=== PATIENT | female | born 1965 | race Caucasian/White ===

== ENCOUNTER → 2020-04-01 10:31 | Outpatient (CLI) | payer OTHER, MEDICARE, SELFPAY ==
--- NOTE | ~2020-04-01 | MM_ITS ---
EXAMINATION: MM screening tung BI w sherry HISTORY: Screening mammogram TECHNIQUE: Craniocaudal and mediolateral oblique 3-D tomosynthesis images were obtained and synthetic 2-D images were generated. CAD analysis was submitted and interpreted. COMPARISON: 02/14/2019, 02/04/2018, 02/02/2017 bilateral digital screening mammogram examinations BREAST PARENCHYMAL COMPOSITION: There are scattered areas of fibroglandular density. FINDINGS: Stable mild fibroglandular asymmetry. There is no evidence of suspicious mass, calcificatio n, or architectural distortion to suggest malignancy in either breast. There has been no suspicious i nterval change. IMPRESSION: 1. No mammographic evidence of malignancy. 2. Recommend routine screening mammography in one year. BI-RADS Category 1: Negative Reviewed, dictated and finalized at location A.
== END ==
PROVIDERS: PCP Family Medicine Adolescent Medicine; Visit Provider Obstetrics & Gynecology Gynecology
DX: Z12.31 Encounter for screening mammogram for malignant neoplasm of breast (principal)
CPT/HCPCS: 77063; 77067

== ENCOUNTER 2020-05-08 06:42 | Outpatient (NON) | payer OTHER, MEDICARE, SELFPAY ==
[2020-05-10 21:25] LABS: SARS-CoV-2 RNA PCR Negative
== END 2020-05-08 06:43 ==
PROVIDERS: PCP Family Medicine Adolescent Medicine; Visit Provider Family Medicine Adolescent Medicine
DX: R05 Cough (principal); R50.9 Fever, unspecified
CPT/HCPCS: 87635; C9803; U0003

== ENCOUNTER 2020-05-11 08:10 | Emergency (ER) | payer OTHER, MEDICARE, SELFPAY ==
--- NOTE | ~2020-05-11 | XR_ITS ---
XR chest 2V DATE: 05/11/2020 08:30 INDICATION: Cough, fever TECHNIQUE: PA and lateral views COMPARISON: 01/15/2017 PA and lateral chest FINDINGS: Normal heart size. No hilar or mediastinal enlargement. No pulmonary infiltrate or consolid ation, pleural effusion or pulmonary vascular congestion or pneumothorax. Surgical clips, right upper quadrant, consistent with cholecystectomy. IMPRESSION: No active cardiopulmonary disease Reviewed, dictated and finalized at location A. GER EXCHANGE
[2020-05-11 08:20] VITALS: BP 139/65; PULSE 82; RESP 18; TEMP 36.7; O2SAT 98
--- NOTE | 2020-05-11 08:29 | ED.URI ---
HPI - URI/Sore Throat General Chief Complaint: Upper Respiratory Infection Stated Complaint: sinus infection Source: patient Mode of arrival: ambulatory Limitations: no limitations History of Present Illness HPI Narrative: Patient is a 55-year-old female who presents complaining of cough and sinus drainage. She reports multiple symptoms over the past 11 days. She reports fever, sore throat and body aches initially. She currently reports cough and fatigue for the past 7 days. She reports a history of bronchitis as well as sinusitis. She denies shortness of breath. She has had Covid testing x2, both which were negative. She denies all other complaints. MD elicited complaint: cough Related Data Home Medications Medication Instructions Recorded Confirmed cholecalciferol (vitamin D3) 2,000 unit PO DAILY 06/29/19 05/11/20 [Vitamin D3] potassium chloride 20 meq PO WEEKLY 06/29/19 05/11/20 triamterene-hydrochlorothiazid 1 tablet PO DAILY 06/29/19 05/11/20 vitamin B complex [B 1 tablet PO DAILY 06/29/19 05/11/20 Complex-Vitamin B12] Allergies Allergy/AdvReac Type Severity Reaction Status Date / Time azithromycin Allergy Intermediate Hives Verified 05/11/20 08:27 erythromycin base Allergy Intermediate Hives Verified 05/11/20 08:22 levofloxacin Allergy Intermediate Hives Verified 05/11/20 08:22 Penicillins Allergy Intermediate Hives Verified 05/11/20 08:22 Review of Systems Review of Systems: Narrative: CONSTITUTIONAL: Denies fever, chills, or sweats. Reports fatigue. EYES: Denies visual changes, redness, or discharge. ENT: Denies rhinorrhea, congestion, sore throat, or otalgia. CARDIOVASCULAR: Denies chest pain, palpitations, or edema. RESPIRATORY: Reports cough,denies sob GASTROINTESTINAL: Denies abdominal pain, nausea, vomiting, or diarrhea. GENITOURINARY: Denies dysuria or hematuria. SKIN: Denies rash or itching. MUSCULOSKELETAL: Denies back pain, joint pain, or myalgia. NEUROLOGIC: Denies headache, numbness, dizziness, or weakness. PSYCHIATRIC: Denies anxiety or depression. [facility] Past Medical History Medical History Endometriosis IBS (irritable bowel syndrome) Meniere's syndrome Obesity Surgical History Surgical History History of endometrial ablation History of partial gastrectomy Hx of cholecystectomy Hx of colonoscopy Hx of repair of left rotator cuff Hx of tonsillectomy Hx of tubal ligation Family History Family History Sibling Diabetes mellitus Family history of chronic obstructive pulmonary disease Mother Hypertension Father Cerebrovascular accident Family history of dementia Social History Social History Smoking status: Former smoker Smoking end date: 06/14/94 Alcohol intake: never Exam Narrative: Exam Narrative: GENERAL: Well-appearing, well-nourished, and in no acute distress. HEAD: Normocephalic, atraumatic. EYES: No redness or drainage. ENT: Mucous membranes pink and moist. NECK: AROM. Supple. No lymphadenopathy. CHEST: No respiratory distress. Clear to auscultation. HEART: Regular rate and rhythm. EXTREMITIES: Normal range of motion. SKIN: Warm, dry, no rash. NEURO: No focal deficits. Alert and oriented x3. Gait steady. PSYCH: Normal affect. No signs of depression or anxiety. Course Vital Signs Vital signs: Vital Signs Temperature 36.7 C 05/11/20 08:20 Pulse Rate 82 05/11/20 08:20 Respiratory Rate 18 05/11/20 08:20 Blood Pressure 139/65 05/11/20 08:20 Pulse Oximetry 98 05/11/20 08:20 Temperature 36.7 C 05/11/20 08:20 Pulse Rate 82 05/11/20 08:20 Respiratory Rate 18 05/11/20 08:20 Blood Pressure 139/65 05/11/20 08:20 Pulse Oximetry 98 05/11/20 08:20 Reviewed. Patient has been instructed to follow-up with her PCP regarding her blood pressure.
== END 2020-05-11 09:03 | disposition home or self-care (01) ==
PROVIDERS: Emergency Provider Nurse Practitioner; PCP Family Medicine Adolescent Medicine
DX: J40 Bronchitis, not specified as acute or chronic (principal); J32.9 Chronic sinusitis, unspecified; Z87.891 Personal history of nicotine dependence; N80.9 Endometriosis, unspecified; H81.09 Meniere's disease, unspecified ear; E66.9 Obesity, unspecified; Z68.34 Body mass index [BMI] 34.0-34.9, adult
CPT/HCPCS: 71046; 99213; G0463

== ENCOUNTER → 2021-04-04 07:26 | Outpatient (CLI) | payer OTHER, MEDICARE, SELFPAY ==
--- NOTE | ~2021-04-04 | MMUS_ITS ---
EXAMINATION: MM diagnostic mammo unilat LT, US breast LT complete HISTORY: Left breast pain TECHNIQUE: Additional ML 3-D tomosynthesis images of the left breast were performed and synthetic 2-D images were generated. CAD analysis was submitted and interpreted. High resolution complete left kraig ast ultrasound including all 4 quadrants and subareolar area was performed. COMPARISON: 04/04/2021, 04/01/2020, 02/14/2019, 01/31/2018 bilateral digital screening mammogram examina tions BREAST PARENCHYMAL COMPOSITION: There are scattered areas of fibroglandular density. FINDINGS: MAMMOGRAPHIC FINDINGS: No suspicious mass or architectural distortion, malignant calcification, skin thickening or retractio n or significant new or developing density of the left breast is evident since prior examinations. ULTRASOUND: No solid mass lesion or suspicious shadowing of the left breast is evident. No cyst is identified. IMPRESSION: 1. No mammographic evidence of malignancy 2. Routine mammographic screening is recommended. BI-RADS Category 1: Negative Reviewed, dictated and finalized at location A. IMPRESSION: 1. No mammographic evidence of malignancy 2. Routine mammographic screening is recommended. BI-RADS Category 1: Negative
--- NOTE | ~2021-04-04 | MM_ITS ---
EXAMINATION: MM screening tung BI w sherry HISTORY: Screening mammogram TECHNIQUE: Craniocaudal and mediolateral oblique 3-D tomosynthesis images were obtained and synthetic 2-D images were generated. CAD analysis was submitted and interpreted. COMPARISON: 04/01/2020, 02/14/2019 bilateral digital screening mammogram examinations BREAST PARENCHYMAL COMPOSITION: There are scattered areas of fibroglandular density. FINDINGS: There is stable fibroglandular asymmetry. There is no evidence of suspicious mass, calcific ation, or architectural distortion to suggest malignancy in either breast. There has been no suspicio us interval change. IMPRESSION: 1. No mammographic evidence of malignancy. 2. Recommend routine screening mammography in one year. BI-RADS Category 1: Negative Reviewed, dictated and finalized at location A.
== END ==
PROVIDERS: PCP Family Medicine Adolescent Medicine; Visit Provider Nurse Practitioner
DX: Z12.31 Encounter for screening mammogram for malignant neoplasm of breast (principal); N64.4 Mastodynia
CPT/HCPCS: 76641; 77063; 77065; 77067

== ENCOUNTER 2021-06-05 11:30 | Outpatient (RCR) | payer OTHER, MEDICARE, SELFPAY ==
--- NOTE | 2021-05-22 16:11 | PTOPEVAL ---
PHYSICAL THERAPY EVALUATION AND PLAN OF CARE 05-22-21 Thank you for referring Kisha Romero to [facility].? She is scheduled to be seen for therapy? 3 x/week for 3 weeks. Please review, sign, date and return this plan of care ANAMARIA. I agree with and certify that the following plan of care is medically necessary. Referring Physician Date Attending Provider: Jyoti Nunez, JASE PT Outpatient Evaluation Document 05/22/21 15:10 ELIZ (Rec: 05/22/21 16:11 ELIZ [id number]) Past Medical History Cardiovascular History Hx Cardiac Disorders No Significant History Respiratory History Hx Bronchitis Yes Gastrointestinal History Hx Cholecystectomy Yes Hx Gastroesophageal Reflux Disease Yes Hx Irritable Bowel Yes: hx Hx Polyps Yes Genitourinary History Hx Genitourinary Disorders No Significant History Musculoskeletal History Hx Fibromyalgia Yes Hx Orthopedic Surgery Yes: B carpal tunnel release surgery Hx Other Musculoskeletal Disorders Yes: L lower leg injury with softball sliding into base- sprain, no fractures Hematological History Hx Hematological Disorders No Significant History Endocrine History Hx Diabetes Yes: new diagnosis of pre diabetic HEENT History Hx Meniere's Syndrome Yes Integumentary History Hx Skin Disorders No Significant History Reproductive History Hx Post Menopausal Yes: had uterine ablation Psychosocial History Hx Psychiatric Disorders No Significant History Pain History History of Any Previous or Ongoing No Significant History Instance of Pain Anesthesia History Hx Anesthesia Reactions No Significant History Evaluation Information Problem Diagnosis L LE lymphedema Onset Mar 2021 Prior Level of Function Activity Level (Last 3 Months) Occupation not working outside of home Activity of Daily Living Ability Independent Indoor/Home Mobility Independent Community Mobility Independent Stairs Ability Independent Functional Cognition (Planning, Shopping Independent , Taking Medications) Cooking Yes Cleaning Yes Laundry Yes Shopping Yes Driving Yes Home Setting Home Type House Mobility Assistive Devices (Used Last 3 None Months) Comments Additional Prior Level of Function doing all home and self care Comments tasks, more pain and limited
--- NOTE | 2021-06-12 08:12 | PCPTNOTE ---
pt called and canceled due to her mom falling and caring for her;
--- NOTE | 2021-07-04 09:58 | PCPTNOTE ---
PHYSICAL THERAPY DISCHARGE 07-04-21 Attending Provider: Jyoti Nunez PA-C Patient:Kisha Romero Date of :1965 Ms. Romero has not returned for any further treatments since 06/05/2021, therefore she will be discharged at this time. She received 7 PT sessions from May 22 to for the diagnosis of L LE lymphedema. She then called and canceled the reevaluation on due to her mom falling and having to care for her. She did not return for any further treatment after that. The goals were not addressed. Thank you for referring this patient to [facility]. Please review, sign, date and return this discharge summary ANAMARIA. I have been updated about the patient's current status and I agree with discharge from the above service at this time. Referring Physician Date
== END 2021-07-07 08:58 | disposition home or self-care (01) ==
LOC: ANHPT 11:30
PROVIDERS: PCP Family Medicine Adolescent Medicine; Visit Provider Physician Assistant
DX: I89.0 Lymphedema, not elsewhere classified (principal)
CPT/HCPCS: 29581; 97016; 97140; 97161

== ENCOUNTER 2021-10-29 01:04 | Day surgery (SDC) | payer OTHER, MEDICARE, SELFPAY ==
[2021-10-24 13:15] VITALS: BMI 34.0
[2021-10-29] VITALS (8 sets, daily range): BP systolic 115–149; BP diastolic 72–88; PULSE 42–70; RESP 17–18; TEMP 36.2–36.3; O2SAT 99–100; BMI 34.4
--- NOTE | ~2021-10-29 | XR_ITS ---
EXAMINATION: XR ERCP DATE: 10/29/2021 12:10 CDT INDICATION: STONES,ERCP, SPHINCTEROTOMY . TECHNIQUE: 12 fluoroscopic images of the right upper quadrant were obtained during ERCP. I was not pr esent during the procedure. Fluoroscopy exposure time was 97.3 seconds. Cumulative dose 20.24 mGy. COMPARISON: None. FINDINGS: Endoscopic catheterization of the common duct. The common duct and pancreatic duct are normal. There is no definite filling defect. IMPRESSION: Fluoroscopic documentation of ERCP. Reviewed, dictated and finalized at location K.
[2021-10-29] MEDS: LACTATED RINGERS 1,000 ML 150 ML IV CONT (11:18)
--- NOTE | 2021-10-29 11:46 | WPDANESEPPF ---
Anes - Initial Pre Proc Eval Procedure: Operation Date: 10/29/21 13:15 Proposed Procedures p Endoscopic Retro Cholangiopancreatogram - Shay Merino MD Date/Time: 10/29/21 11:46 Surgeon: Shay Merino MD Pre Op Diagnosis: sphincter of oddi dysfunction Patient Data Age: 56 Gender: F Height: 1.57 m Weight: 85.6 kg Last Vital Signs Temp 97.3 F L 10/29/21 10:40 Pulse 57 L 10/29/21 10:40 Resp 18 10/29/21 10:40 BP 140/72 10/29/21 10:40 Pulse Ox 100 10/29/21 10:40 Allergies Allergy/AdvReac Type Severity Reaction Status Date / Time erythromycin base Allergy Intermediate Hives Verified 10/29/21 10:54 levofloxacin Allergy Intermediate Hives Verified 10/29/21 10:54 Penicillins Allergy Intermediate Hives Verified 10/29/21 10:54 Home Medications Medication Instructions Recorded Confirmed Type cholecalciferol (vitamin D3) 2,000 unit PO DAILY 06/29/19 10/29/21 History [Vitamin D3] triamterene-hydrochlorothiazid 1 tablet PO DAILY 06/29/19 10/29/21 History potassium chloride 20 mEq 40 meq PO WEEKLY tablet 09/04/21 10/29/21 History tablet,extended release(part/cryst) sertraline 50 mg tablet 50 mg PO DAILY #30 tablet 09/26/21 10/29/21 Rx Patient hx anesthesia problems: post op nausea/vomiting (will apply scopolamine patch) Family hx anesthesia problems: none Results Review: All pre-operative results and documents have been reviewed as part of the pre-operative evaluation. [facility] Past Medical History Medical History (Updated 10/16/21 @ 11:53 by Shay Merino MD) Adenomatous colon polyp Endometriosis Hx of adenomatous colonic polyps IBS (irritable bowel syndrome) Meniere's syndrome Obesity RUQ pain Sphincter of Oddi dysfunction Surgical History Surgical History (Updated 10/16/21 @ 11:53 by Shay Merino MD) H/O gastric sleeve History of carpal tunnel surgery Bilateral History of endometrial ablation History of partial gastrectomy Hx of cholecystectomy Hx of colonoscopy Hx of repair of left rotator cuff Hx of tonsillectomy Hx of tubal ligation Family History Family History Sibling Diabetes mellitus Family history of chronic obstructive pulmonary disease Mother Hypertension Father Cerebrovascular accident Family history of dementia Hypertension Son Asthma Other Colon polyp Social History Social History Smoking status: Never smoker Second hand tobacco smoke exposure: No Alcohol intake: never Substance use: never Substance use type: does not use Living arrangements: with family Additional occupation/education comments: Disability Gender identity (if verbalized by the patient): Female Sexual Orientation (if Verbalized by the Patient): Straight or Heterosexual Spiritual care concerns: No Agree to blood products: Yes Anes - Eval Final PreProcedure Day of Procedure 10/29/21 11:46 Patient weight: obese Heart: regular rate and rhythm Lungs: clear to auscultation Airway: Mallampati scale class II Neurological: alert and oriented Last oral intake: >/= 8 hours ASA classification: III Emergent: no Anesthetic plan: proceed Anesthesia type and monitoring: general ETT and standard monitoring Results Review: All pre-operative results and documents have been reviewed as part of the pre-operative evaluation. Informed Consent: The patient's anesthetic plan and its attendant risks and benefits were discussed with the patient/family/POA. Questions were solicited and answers provided to the satisfaction of the patient/family/POA.
[2021-10-29] MEDS: INDOMETHACIN 50 MG SUPP.RECT RECTAL (12:18)
--- NOTE | 2021-10-29 12:34 | WPDHPUPDATE1 ---
History and Physical Update Update Date/Time: 10/29/21 12:34 History and Physical has been reviewed, including an updated exam of the patient. There are NO changes in the patient's condition. Risks, benefits, and alternatives have been discussed and questions answered. Patient agrees to proceed with procedure.
--- NOTE | 2021-10-29 13:35 | SUR.PHASEII ---
RN notified Dr. Vázquez's of patient's heart rate in the lower 40's. Dr. Carmichael stated the patient was safe for discharge.
== END 2021-10-29 13:45 | disposition home or self-care (01) ==
PROVIDERS: PCP Family Medicine Adolescent Medicine; Visit Provider Internal Medicine Gastroenterology
PROC: (CPT 43260; principal; 2021-10-29 13:15)
DX: R10.11 Right upper quadrant pain (principal); K83.8 Other specified diseases of biliary tract; K83.4 Spasm of sphincter of Oddi; K58.9 Irritable bowel syndrome, unspecified; E66.9 Obesity, unspecified; Z68.34 Body mass index [BMI] 34.0-34.9, adult; Z98.84 Bariatric surgery status
CPT/HCPCS: 43262; 43264; 74329; A9270; J0330; J1100; J2001; J2405; J2704; J7120

== ENCOUNTER 2021-10-31 12:01 | Emergency (ER) | payer OTHER, MEDICARE, SELFPAY ==
--- NOTE | ~2021-10-31 | CT_ITS ---
EXAMINATION: CT abdomen pelvis w con DATE: 10/31/2021 17:52 INDICATION: Epigastric abdominal pain. TECHNIQUE: Computed tomography (CT) of the abdomen and pelvis was performed with 75 mL Omnipaque 300 intravenous contrast. Automated exposure control and iterative reconstruction technique were employed . The dose-length product was 658.00 mGy-cm. COMPARISON: None. FINDINGS: The visualized portions of the lung bases demonstrate minimal atelectasis. No pleural effus ion. The heart size is normal. No pericardial effusion. Pneumobilia is noted, likely secondary to sph incterotomy. There are changes of cholecystectomy. The spleen, pancreas, adrenal glands, and kidneys are normal. There are no dilated loops of bowel. There are surgical changes of the stomach. The appen pauline is normal. There are no pathologically enlarged lymph nodes. There is no free intraperitoneal flu id. There is severe lower lumbar spondylosis. IMPRESSION: 1. No etiology for the patient's symptoms. Reviewed, dictated and finalized at location A.
[2021-10-31 12:05] VITALS: BP 148/66; PULSE 60; RESP 16; TEMP 36.5; O2SAT 100
[2021-10-31 12:13] LABS: Basophils Absolute Auto 0.1 K/mm3 (0.0-0.1); Basophils Percent Auto 0.7 % (0.2-1.2); Eosinophils Absolute Auto 0.1 K/mm3 (0-0.3); Eosinophils Percent Auto 0.7 % (0-4.4); Hematocrit 38.4 % (37.0-47.0); Hemoglobin 12.5 g/dL (12.0-15.0); Immature Granulocyte Absolute 0.04 K/mm3 (0.00-0.031); Immature Granulocyte Percent A 0.5 % (0-0.5); Lymphocytes Absolute Auto 2.31 K/mm3 (0.9-3.2); Lymphocytes Percent Auto 31.3 % (18.3-44.2); Mean Corpuscular HGB Conc 32.6 g/dl (32-36); Mean Corpuscular Hemoglobin 27.5 pg (26-34); Mean Corpuscular Volume 84.6 fl (80-100); Mean Platelet Volume 10.3 fl (7.4-10.4); Monocytes Absolute Auto 0.7 K/mm3 (0.1-0.6); Monocytes Percent Auto 9.9 % (2.6-8.5); Neutrophils Absolute Auto 4.2 K/mm3 (1.3-6.7); Neutrophils Percent Auto 56.9 % (45.5-73.1); Platelet Count Result 369 k/mm3 (150-375); Red Blood Count 4.54 M/mm3 (4.2-5.4); Red Cell Distribution Width 14.5 % (11.5-14.5); White Blood Count 7.4 K/mm3 (4.5-10.0)
[2021-10-31 12:24] LABS: Alanine Aminotransferase 20 U/L (6-35); Albumin Level 4.1 g/dL (3.5-5.1); Alkaline Phosphatase 67 U/L (38-126); Anion Gap 8 mmol/L (8-16); Aspartate Amino Transferase 26 U/L (14-36); Bilirubin,Total 0.2 mg/dL (0.2-1.3); Blood Urea Nitrogen 23 mg/dL (7-17); Calcium 8.5 mg/dL (8.4-10.2); Carbon Dioxide 27 mmol/L (22-30); Chloride 104 mmol/L (98-107); Estimated CRCL calculation 51 ml/min; Estimated Glomerular Filt Rate 51; Glucose 86 mg/dL (65-110); Lipase 119 U/L (23-300); Potassium 3.8 mmol/L (3.4-5.0); Sodium 139 mmol/L (137-145)
[2021-10-31 12:47] LABS: Add Urine Microscopic? NO; Appearance Urine Clear (Clear); Bilirubin Urine Negative (Negative); Blood Urine Negative (Negative); Color Urine Yellow (Yellow); Glucose Urine UA Negative (Negative); Ketones Urine Negative (Negative); Leukocyte Esterase Ur Negative LEU/UL (Negative); Nitrate Urine Negative (Negative); Protein Urine Negative (Negative); Urobilinogen Urine 0.2 mg/dL (<2.0); pH Urine 6.5 (5.0-9.0)
[2021-10-31 14:55] VITALS: BP 135/56; PULSE 55; RESP 18; O2SAT 98
[2021-10-31] MEDS: DICYCLOMINE HCL INJ 20 MG/2 ML VIAL IM (15:42)
--- NOTE | 2021-10-31 16:06 | ED.ABDPAIN ---
HPI - Abdominal Pain General Chief Complaint: Abdominal Pain Stated Complaint: Abd pain Time Seen by Provider: 10/31/21 14:44 Source: patient and RN notes reviewed Mode of arrival: ambulatory Limitations: no limitations History of Present Illness HPI narrative: This is a 56 year old female with history of Sphincter of Oddi syndrome who presents for evaluation of epigastric abdominal pain. Patient had an ERCP performed [address] Merino. She developed epigastric pain yesterday. She reports having constant dull ache that becauses severe sharp with eating and drinking. She has nausea but denies vomiting or fever. She is concerned she may have pancreatitis. This pain is similar to previous episode of pancreatitis and sphincter of oddi dysfunction. She took tylenol without relief. She rates her pain as 5/10. Related Data Home Medications Medication Instructions Recorded Confirmed cholecalciferol (vitamin D3) 2,000 unit PO DAILY 06/29/19 10/29/21 [Vitamin D3] triamterene-hydrochlorothiazid 1 tablet PO DAILY 06/29/19 10/29/21 potassium chloride 20 mEq 40 meq PO WEEKLY tablet 09/04/21 10/29/21 tablet,extended release(part/cryst) Allergies Allergy/AdvReac Type Severity Reaction Status Date / Time erythromycin base Allergy Intermediate Hives Verified 10/31/21 14:56 levofloxacin Allergy Intermediate Hives Verified 10/31/21 14:56 Penicillins Allergy Intermediate Hives Verified 10/31/21 14:56 Review of Systems Review of Systems: All systems reviewed & are unremarkable except as noted in HPI and below Constitutional: Constitutional: Denies chills and Denies fever(s) Cardiovascular: Cardiovascular: Denies chest pain Respiratory: Respiratory: Denies cough and Denies dyspnea Gastrointestinal: Gastrointestinal: Reports abdominal pain, Denies diarrhea, Reports nausea and Denies vomiting Musculoskeletal: Musculoskeletal: Reports back pain PMFSH Past Medical History Medical History Adenomatous colon polyp Endometriosis Hx of adenomatous colonic polyps IBS (irritable bowel syndrome) Meniere's syndrome Obesity RUQ pain Sphincter of Oddi dysfunction Surgical History Surgical History H/O gastric sleeve History of carpal tunnel surgery Bilateral History of endometrial ablation History of partial gastrectomy Hx of cholecystectomy Hx of colonoscopy Hx of repair of left rotator cuff Hx of tonsillectomy Hx of tubal ligation Family History Family History Sibling Diabetes mellitus Family history of chronic obstructive pulmonary disease Mother Hypertension Father Cerebrovascular accident Family history of dementia Hypertension Son Asthma Other Colon polyp Social History Social History Smoking status: Never smoker Second hand tobacco smoke exposure: No Alcohol intake: never Substance use: never Substance use type: does not use Additional occupation/education comments: Disability Gender identity (if verbalized by the patient): Female Sexual Orientation (if Verbalized by the Patient): Straight or Heterosexual Spiritual care concerns: No Agree to blood products: Yes Exam Narrative: GENERAL: Well-appearing, well-nourished, and in no acute distress. HEAD: Normocephalic, atraumatic EYES: EOMI, conjunctiva clear without discharge THROAT:Mucous membranes moist, Oropharynx normal without erythema, exudate, peritonsillar swelling or fluctuance NECK: Supple, without lymphadenopathy or mass RESPIRATORY: No respiratory distress, Airway patent, Respirations non-labored, Clear to auscultation without rales, rhonchi or wheeze HEART: Regular rate and rhythm. No murmur heard. Normal peripheral pulses. ABDOMEN: Soft, TTP epigasstric , no
[2021-10-31] MEDS: ONDANSETRON HCL ODT 4 MG TABLET PO (16:52)
[2021-10-31] MEDS: BELLADONNA ALK/PHENOB ELIX 10 ML, MAG HYDROX/ALUMINUM HYD/SIMETH 30 ML, LIDOCAINE HCL 2... PO (16:52)
[2021-10-31] MEDS: PANTOPRAZOLE SODIUM IV 40 MG VIAL IV PUSH (17:40)
== END 2021-10-31 18:57 | disposition home or self-care (01) ==
PROVIDERS: Emergency Medicine; Emergency Provider General Practice; PCP Family Medicine Adolescent Medicine
DX: K83.09 Other cholangitis (principal); K58.9 Irritable bowel syndrome, unspecified; H81.09 Meniere's disease, unspecified ear; E66.9 Obesity, unspecified; Z68.34 Body mass index [BMI] 34.0-34.9, adult; Z86.010 Personal history of colon polyps
CPT/HCPCS: 36415; 74177; 80053; 81003; 81025; 83690; 85025; 96365; 96372; 96375; 99284; A9270; C9113; J0131; J0500; Q9967

== ENCOUNTER 2022-05-12 17:18 | Outpatient (CLI) | payer OTHER, MEDICARE, SELFPAY ==
--- NOTE | ~2022-05-12 | MM_ITS ---
EXAMINATION: MM screening tung BI w sherry HISTORY: Screening mammogram TECHNIQUE: Craniocaudal and mediolateral oblique 3-D tomosynthesis images were obtained and synthetic 2-D images were generated. CAD analysis was submitted and interpreted. COMPARISON: 04/04/2021 diagnostic left mammogram and left breast ultrasound examination 04/04/2021, 04/01/2020 bilateral screening mammogram examinations BREAST PARENCHYMAL COMPOSITION: There are scattered areas of fibroglandular density. FINDINGS: There is no evidence of suspicious mass, calcification, or architectural distortion to sugg est malignancy in either breast. There has been no suspicious interval change. IMPRESSION: 1. No mammographic evidence of malignancy. 2. Recommend routine screening mammography in one year. BI-RADS Category 1: Negative Reviewed, dictated and finalized at location B. E GRINDER
== END 2022-05-12 17:19 | disposition home or self-care (01) ==
LOC: ANHIMG 17:20
PROVIDERS: PCP Family Medicine Adolescent Medicine; Visit Provider Nurse Practitioner
DX: Z12.31 Encounter for screening mammogram for malignant neoplasm of breast (principal)
CPT/HCPCS: 77063; 77067

== ENCOUNTER → 2022-05-14 08:50 | Outpatient (CLI) | payer OTHER, SELFPAY ==
--- NOTE | ~2022-05-14 | DEXA_ITS ---
Corrected Repore See bolded Text 05/28/2022 SLJ This report was recreated on 05/28/2022. Original report was signed by Brandon White MD 05/14/2022 9:03 AM. Bone Density Report Name: BAKARI DUTTON Age: 57 Sex: Female Ethnicity: White Date of : 1965 Indication: screening for osteoporosis; postmenopausal Referring Provider: Frank, Kerrie Study: Bone densitometry was performed. Exam Date: May 14, 2022 Accession number: [id number] Bone Density: Region BMD T-score Z-score Classification AP Spine (L1-L4) 1.070 0.2 1.5 Normal Femoral Neck (Left) 0.828 -0.2 1.0 Normal Total Hip (Left) 1.040 0.8 1.6 Normal Femoral Neck (Right) 0.884 0.3 1.5 Normal Total Hip (Right) 1.049 0.9 1.7 Normal Total Hip Mean 1.045 0.9 1.7 Normal World Health Organization criteria for BMD impression classify patients as: Normal (T-score at or above -1.0), Osteopenia (T-score between -1.0 and -2.5), or Osteoporosis (T-score at or below -2.5). 10-year Fracture Risk: FRAX not reported because: All T-scores for Spine Total, Hip Total, Femoral Neck at or above -1.0 Previous Exams: Region Exam Age BMD T-score BMD Change BMD Change Date g/cm2 vs Baseline vs Previous AP Spine(L1-L4) 05/14/2022 57 1.070 0.2 -0.082* -0.031* 02/08/2018 52 1.101 0.5 -0.051* -0.051* 01/29/2015 49 1.152 1.0 Total Hip(Left) 05/14/2022 57 1.040 0.8 -0.137* -0.035* 02/08/2018 52 1.075 1.1 -0.103* -0.103* 01/29/2015 49 1.178 1.9 Total Hip(Right) 05/14/2022 57 1.049 0.9 -0.121* -0.019 02/08/2018 52 1.068 1.0 -0.102* -0.102* 01/29/2015 49 1.170 1.9 *Denotes significance at 95% confidence level, LSC for AP Spine = 0.022 g/cm2, LSC for Total Hip = 0.027 g/cm2 Clinical Information Provided by Patient: Has used the following medications: HRT (i.e. estrogen/hormone therapy), Vitamin D Patient maximum height was 62.2 Menopause Age: 44 No regular weight bearing exercise Onset of menses at age 12 Number of children 1 Impression: The patient has normal bone mass. The BMD for the AP Spine(L1-L4) decreased, changing by -0.031 since the last DXA exam. The BMD for the Total Hip(Left) decreased, changing by -0.035 since the last DXA exam. Discussion: SIGNIFICANT BONE LOSS OBSERVED. Adherence to therapy (includ
== END ==
PROVIDERS: PCP Family Medicine Adolescent Medicine; Visit Provider Nurse Practitioner
DX: Z78.0 Asymptomatic menopausal state (principal)
CPT/HCPCS: 77080

== ENCOUNTER 2022-07-29 13:29 | Outpatient (CLI) | payer OTHER, MEDICARE, SELFPAY ==
--- NOTE | ~2022-07-29 | MR_ITS ---
EXAMINATION: MR lumbar spine wo con DATE: 07/29/2022 14:01 INDICATION: Low back pain. Left-sided radiculopathy. TECHNIQUE: Magnetic resonance imaging (MRI) of the lumbar spine was performed without intravenous con trast. Sequences included sagittal T2-weighted FSE, sagittal T2-weighted FS FSE, sagittal T1-weighted FSE, and axial T2-weighted FSE. COMPARISON: None FINDINGS: There is 7 degrees levocurvature of lumbar spine. Vertebral body heights are normal. There is mildly decreased disc height at L4-L5 and moderately decreased disc height at L5-S1 with endplate remodeling. The distal spinal cord signal intensity is normal. The conus medullaris is at T12-L1. The following disc levels are specifically discussed: L1-L2: There is a central protrusion. There is mild bilateral facet joint osteoarthritis. There is no neural foraminal stenosis. There is mild central canal stenosis. L2-L3: The disc is mildly bulging. There is severe right and mild left facet joint osteoarthritis. Th ere is mild bilateral neural foraminal stenosis. There is no central canal stenosis. L3-L4: There is a left foraminal protrusion. There is mild right and moderate left facet joint osteoa rthritis. There is mild left neural foraminal stenosis. There is no central canal stenosis. L4-L5: The disc is bulging and has an annular fissure. There is mild bilateral facet joint osteoarthr itis. There is mild bilateral neural foraminal stenosis. There is mild central canal stenosis. L5-S1: The disc is bulging and has an annular fissure. There is mild bilateral facet joint osteoarthr itis. There is mild bilateral neural foraminal stenosis. There is mild central canal stenosis. IMPRESSION: 1. Moderate lumbar spondylosis. Reviewed, dictated and finalized at location A. 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
== END 2022-07-29 13:30 | disposition home or self-care (01) ==
PROVIDERS: PCP Family Medicine Adolescent Medicine; Visit Provider Physician Assistant
DX: M54.42 Lumbago with sciatica, left side (principal); M47.816 Spondylosis without myelopathy or radiculopathy, lumbar region
CPT/HCPCS: 72148

== ENCOUNTER → 2022-12-04 10:29 | Outpatient (CLI) | payer OTHER, MEDICARE, SELFPAY ==
--- NOTE | ~2022-12-04 | XR_ITS ---
Lumbosacral Spine: AP and lateral views, with neutral, flexion, and extension positioning Clinical History: Pain Findings: The normal lordotic curve is maintained. No fracture or sublocation. No instability evident on flexion or extension. There is mild degenerative change at L1-L2 and L5-S1. The sacroiliac joint s are normally outlined. Impression: Mild degenerative disc change, as above. Reviewed, dictated and finalized at location M. Impression: Mild degenerative disc change, as above.
== END ==
PROVIDERS: PCP Family Medicine Adolescent Medicine; Visit Provider Neurological Surgery
DX: M47.816 Spondylosis without myelopathy or radiculopathy, lumbar region (principal)
CPT/HCPCS: 72110

== ENCOUNTER 2023-02-23 07:53 | Outpatient (CLI) | payer OTHER, MEDICARE, SELFPAY ==
--- NOTE | ~2023-02-23 | MR_ITS ---
EXAMINATION: MR lumbar spine wo con DATE: 02/23/2023 08:26 INDICATION: Lumbar spondylosis. Low back pain. TECHNIQUE: Magnetic resonance imaging (MRI) of the lumbar spine was performed without intravenous con trast. Sequences included sagittal T2-weighted FSE, sagittal T2-weighted FS FSE, sagittal T1-weighted FSE, and axial T2-weighted FSE. COMPARISON: Lumbar spine MRI 07/29/2022 FINDINGS: There is 5 degrees levocurvature of lumbar spine. Vertebral body heights are normal. There is mildly decreased disc height at L1-L2 and moderately decreased disc height at L5-S1. The distal sp inal cord signal intensity is normal. The conus medullaris is at T12-L1. The following disc levels ar e specifically discussed: L1-L2: There is a central protrusion. There is mild bilateral facet joint osteoarthritis. There is no neural foraminal stenosis. There is mild central canal stenosis. L2-L3: The disc does not extend beyond the endplate margin. There is severe right and moderate left f acet joint osteoarthritis. There is no neural foraminal stenosis. There is no central canal stenosis. L3-L4: The disc is mildly bulging. There is moderate bilateral facet joint osteoarthritis. There is m ild left neural foraminal stenosis. There is no central canal stenosis. L4-L5: The disc is bulging and has an annular fissure. There is moderate bilateral facet joint osteoa rthritis. There is mild bilateral neural foraminal stenosis. There is mild central canal stenosis. L5-S1: The disc is bulging with superimposed left central extrusion. There is moderate bilateral face t joint osteoarthritis. There is mild bilateral neural foraminal stenosis. There is mild central josey l stenosis. IMPRESSION: 1. Moderate lower lumbar spondylosis, stable from 07/29/2022. Reviewed, dictated and finalized at location A.
== END 2023-02-23 07:54 | disposition home or self-care (01) ==
LOC: ANHIMG 07:57
PROVIDERS: PCP Family Medicine Adolescent Medicine; Visit Provider Neurological Surgery
DX: M47.816 Spondylosis without myelopathy or radiculopathy, lumbar region (principal)
CPT/HCPCS: 72148

== ENCOUNTER → 2023-03-24 10:46 | Outpatient (CLI) | payer OTHER, MEDICARE, SELFPAY ==
--- NOTE | ~2023-03-24 | US_ITS ---
US thyroid INDICATION: Thyroid nodule seen on carotid ultrasound TECHNIQUE: Real-time sonographic images of the thyroid gland were obtained. COMPARISON: No prior studies for comparison. FINDINGS: The right thyroid lobe measures 4.3 x 1.7 x 1.6 cm. The left thyroid lobe measures 4 x 1.3 x 1 cm. Thyroid gland is diffusely heterogeneous with multiple bilateral thyroid nodules. Largest do minant right mass is solid, hypoechoic, wider than tall with circumscribed margins with punctate echo genic foci measuring 1.7 x 1.2 x 1.2 cm, TR 5. The largest dominant mass in the left lobe measures 12 x 7 x 7 mm and is solid, hypoechoic, wider than tall, smoothly marginated without echogenic foci, TR 4. No masses in the left lobe meet sonographic criteria for biopsy. IMPRESSION: 1. Bilateral thyroid nodules, largest dominant mass in the right lobe measuring 1.7 cm, TR 5. Ultras ound-guided fine-needle aspiration biopsy recommended. Reviewed, dictated and finalized at location B. IMPRESSION: 1. Bilateral thyroid nodules, largest dominant mass in the right lobe measurin g 1.7 cm, TR 5. Ultrasound-guided fine-needle aspiration biopsy recommended.
== END ==
PROVIDERS: PCP Family Medicine Adolescent Medicine; Visit Provider Family Medicine Adolescent Medicine
DX: E04.2 Nontoxic multinodular goiter (principal)
CPT/HCPCS: 76536

== ENCOUNTER 2023-04-04 08:31 | Outpatient (CLI) | payer OTHER, MEDICARE, SELFPAY ==
--- NOTE | ~2023-04-04 | MR_ITS ---
MRI of the thoracic spine Clinical History: Radicular pain Technique: Axial T2-weighted and gradient images, and sagittal T1-weighted, T2-weighted, and STIR hellen ges were acquired. Findings: There is no fracture or subluxation of the thoracic spine. Vertebral bodies maintain normal height and alignment. No suspicious bone marrow signal abnormality seen. No significant disc bulge or herniation seen at any thoracic level. There is no spinal canal stenosis or cord compression. There are mild to moderate facet joint degenerative changes at the lower thorac ic spine. No abnormal signal seen in the spinal cord. No epidural mass or collection seen. Paravertebral soft t issues are unremarkable. Impression: No fracture or subluxation. No spinal canal stenosis or cord compression. Mild to moderate facet joint degenerative changes at the lower thoracic spine. Reviewed, dictated and finalized at [facility]. Impression: No fracture or subluxation. No spinal canal stenosis or cord compression. Mild to moderate facet joint degenerative changes at the lower thoracic spine.
== END 2023-04-04 08:32 | disposition home or self-care (01) ==
LOC: ANHIMG 08:37
PROVIDERS: PCP Family Medicine Adolescent Medicine; Visit Provider Nurse Practitioner Family
DX: M54.16 Radiculopathy, lumbar region (principal); M46.94 Unspecified inflammatory spondylopathy, thoracic region
CPT/HCPCS: 72146

== ENCOUNTER 2023-04-09 12:29 | Outpatient (CLI) | payer OTHER, MEDICARE, SELFPAY ==
--- NOTE | ~2023-04-09 | US_ITS ---
EXAMINATION: US FNA w image guidance DATE: 04/09/2023 14:04 INDICATION: Nontoxic single right thyroid nodule TECHNIQUE: A time-out was performed to verify the patient's name, date of , and procedure to be performed . The procedure and its benefits and risks were discussed with the patient. Risks specifically discus sed included bleeding and infection. The patient understood the risks and agreed to proceed. The neck was prepped and draped in the usual sterile manner. 3 mL 1% lidocaine was used for local anesthesia . 6 passes were made with a 25G needle into the lesion. Appropriate needle location was documented with continuous sonographic guidance. A sterile bandage was applied. There were no immediate compli cations. FINDINGS: Grayscale ultrasound images demonstrate biopsy needles advanced into a 1.9 cm TI RADS 5 right thyroid nodule. IMPRESSION: 1. Successful ultrasound-guided fine needle aspiration of a 1.9 cm TI RADS 5 right thyroid nodule. Reviewed, dictated and finalized at location A. IMPRESSION: 1. Successful ultrasound-guided fine needle aspiration of a 1.9 cm TI RADS 5 r ight thyroid nodule.
== END 2023-04-09 12:30 | disposition home or self-care (01) ==
LOC: ANHIMG 12:31
PROVIDERS: PCP Family Medicine Adolescent Medicine; Visit Provider Family Medicine Adolescent Medicine
DX: E04.1 Nontoxic single thyroid nodule (principal)
CPT/HCPCS: 10005; 88173; 88305

== ENCOUNTER → 2023-05-13 08:59 | Outpatient (CLI) | payer OTHER, MEDICARE, SELFPAY ==
--- NOTE | ~2023-05-13 | MM_ITS ---
EXAMINATION: MM screening tung BI w sherry HISTORY: Screening mammogram TECHNIQUE: Craniocaudal and mediolateral oblique 3-D tomosynthesis images were obtained and synthetic 2-D images were generated. CAD analysis was submitted and interpreted. COMPARISON: 05/12/2022 bilateral screening mammogram 04/04/2021 diagnostic left mammogram and left complete breast ultrasound, reported negative 04/04/2021 bilateral screening mammogram BREAST PARENCHYMAL COMPOSITION: There are scattered areas of fibroglandular density. FINDINGS: There is no evidence of suspicious mass, calcification, or architectural distortion to sugg est malignancy in either breast. There has been no suspicious interval change. IMPRESSION: 1. No mammographic evidence of malignancy. 2. Recommend routine screening mammography in one year. BI-RADS Category 1: Negative Reviewed, dictated and finalized at location A. 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
== END ==
PROVIDERS: PCP Family Medicine Adolescent Medicine; Visit Provider Nurse Practitioner
DX: Z12.31 Encounter for screening mammogram for malignant neoplasm of breast (principal)
CPT/HCPCS: 77063; 77067

== ENCOUNTER 2024-03-30 00:43 | Day surgery (SDC) | payer BC, SELFPAY ==
[2024-03-20 11:41] VITALS: BMI 30.6
[2024-03-30 06:51] VITALS: BP 141/81; PULSE 66; RESP 18; TEMP 35.8; O2SAT 99
[2024-03-30] MEDS: LACTATED RINGERS 1,000 ML 150 ML IV CONT (06:59)
--- NOTE | 2024-03-30 07:02 | WPDANESEPPF ---
Anes - Initial Pre Proc Eval Procedure: Operation Date: 03/30/24 08:00 Proposed Procedures p Screening Colonoscopy - Diogenes Lynn MD Date/Time: 03/30/24 07:02 Surgeon: Diogenes Lynn MD Pre Op Diagnosis: hx colon polyps Patient Data Age: 58 Gender: F Height: 1.57 m Weight: 78.8 kg Last Vital Signs Temp 35.8 C L 03/30/24 06:51 Pulse 66 03/30/24 06:51 Resp 18 03/30/24 06:51 BP 141/81 H 03/30/24 06:51 Pulse Ox 99 03/30/24 06:51 O2 Del Method Room Air 03/30/24 06:51 Allergies Allergy/AdvReac Type Severity Reaction Status Date / Time erythromycin base Allergy Intermediate Hives Verified 03/30/24 06:46 levofloxacin Allergy Intermediate Hives Verified 03/30/24 06:46 Penicillins Allergy Intermediate Hives Verified 03/30/24 06:46 Home Medications Medication Instructions Recorded Confirmed Type cholecalciferol (vitamin D3) 50 2,000 unit PO DAILY 06/29/19 03/30/24 History mcg (2,000 unit) tablet (Vitamin D3) hyoscyamine sulfate 0.125 mg 0.125 mg PO QID PRN dyspepsia #90 11/20/21 03/30/24 Rx tablet (Levsin) tabs ondansetron HCl 4 mg tablet 4 mg PO Q8H PRN nausea and 11/20/21 03/30/24 Rx vomiting #90 tabs rosuvastatin 10 mg tablet See Rx Instructions .Route 07/28/23 03/30/24 Rx .COMPLEX #90 tabs biotin 1,000 mcg chewable tablet 1,000 mcg PO DAILY 03/20/24 03/30/24 History potassium chloride 20 mEq 20 meq PO 2XW 03/20/24 03/30/24 History tablet,extended release(part/cryst) semaglutide 0.25 units subcut USEASDIRECTD 03/20/24 03/30/24 History sertraline 50 mg tablet See Rx Instructions .Route 03/28/24 03/30/24 Rx .COMPLEX #90 tabs triamterene 37.5 See Rx Instructions .Route 03/28/24 03/30/24 Rx mg-hydrochlorothiazide 25 mg tablet .COMPLEX #90 tabs Patient hx anesthesia problems: none Family hx anesthesia problems: none Results Review: All pre-operative results and documents have been reviewed as part of the pre-operative evaluation. [facility] Past Medical History Medical History Adenomatous colon polyp Endometriosis Hx of adenomatous colonic polyps IBS (irritable bowel syndrome) Meniere's syndrome Nausea Obesity Sphincter of Oddi dysfunction Surgical History Surgical History H/O gastric sleeve History of carpal tunnel surgery Bilateral History of endometrial ablation History of partial gastrectomy Hx of cholecystectomy Hx of colonoscopy Hx of repair of left rotator cuff Hx of tonsillectomy Hx of tubal ligation Family History Family History Sibling Diabetes mellitus Family history of chronic obstructive pulmonary disease Mother Hypertension Father Cerebrovascular accident Family history of dementia Hypertension Son Asthma Other Colon polyp Social History Social History Years smoked: 5 Smoking status: Former smoker Second hand tobacco smoke exposure: No Additional smoking assessment comments: 1ppw Alcohol intake: never Substance use: never Substance use type: does not use Lack of Transportation: No Lack of Food: Never True Current Housing: I Have Housing Concerned About Future Housing: No Difficulty Paying Gas/Electric Bills: No Difficulty Paying for Meds: No Currently Unemployed: No Education: High School Diploma/GED Difficulty w/ Childcare or Family Care: No Living arrangements: with family Occupation/Education: other Additional occupation/education comments: Disability Gender identity (if verbalized by the patient): Female Sexual Orientation (if Verbalized by the Patient): Straight or Heterosexual Spiritual care concerns: No Agree to blood products: Yes Anes - Eval Final PreProcedure Day of Procedure 03/30/24 07:02 Patient weight: obese Heart: reg
--- NOTE | 2024-03-30 08:31 | PM.IMHP ---
H&P: HPI History of Present Illness Date/Time: 03/30/24 08:31 Chief Complaint: surveillance colonoscopy Narrative: The patient is referred for a surveillance colonoscopy due to a personal history of polyps. The last colonoscopy was and revealed . The patient feels well from a GI standpoint. Specifically, there has been no change in bowel habits, bleeding, abdominal pain, or unintentional weight loss. There is no history of cardiac or pulmonary symptoms Review of Systems Review of Systems: All systems reviewed & are unremarkable except as noted in HPI and below PMFSH Past Medical History Medical History Adenomatous colon polyp Endometriosis Hx of adenomatous colonic polyps IBS (irritable bowel syndrome) Meniere's syndrome Nausea Obesity Sphincter of Oddi dysfunction Surgical History Surgical History H/O gastric sleeve History of carpal tunnel surgery Bilateral History of endometrial ablation History of partial gastrectomy Hx of cholecystectomy Hx of colonoscopy Hx of repair of left rotator cuff Hx of tonsillectomy Hx of tubal ligation Family History Family History Sibling Diabetes mellitus Family history of chronic obstructive pulmonary disease Mother Hypertension Father Cerebrovascular accident Family history of dementia Hypertension Son Asthma Other Colon polyp Social History Social History Years smoked: 5 Smoking status: Former smoker Second hand tobacco smoke exposure: No Additional smoking assessment comments: 1ppw Alcohol intake: never Substance use: never Substance use type: does not use Lack of Transportation: No Lack of Food: Never True Current Housing: I Have Housing Concerned About Future Housing: No Difficulty Paying Gas/Electric Bills: No Difficulty Paying for Meds: No Currently Unemployed: No Education: High School Diploma/GED Difficulty w/ Childcare or Family Care: No Living arrangements: with family Occupation/Education: other Additional occupation/education comments: Disability Gender identity (if verbalized by the patient): Female Sexual Orientation (if Verbalized by the Patient): Straight or Heterosexual Spiritual care concerns: No Agree to blood products: Yes Meds Home Medications and Allergies Home Medications Medication Instructions Recorded Confirmed Type cholecalciferol (vitamin D3) 50 2,000 unit PO DAILY 06/29/19 03/30/24 History mcg (2,000 unit) tablet (Vitamin D3) hyoscyamine sulfate 0.125 mg 0.125 mg PO QID PRN dyspepsia #90 11/20/21 03/30/24 Rx tablet (Levsin) tabs ondansetron HCl 4 mg tablet 4 mg PO Q8H PRN nausea and 11/20/21 03/30/24 Rx vomiting #90 tabs rosuvastatin 10 mg tablet See Rx Instructions .Route 07/28/23 03/30/24 Rx .COMPLEX #90 tabs biotin 1,000 mcg chewable tablet 1,000 mcg PO DAILY 03/20/24 03/30/24 History potassium chloride 20 mEq 20 meq PO 2XW 03/20/24 03/30/24 History tablet,extended release(part/cryst) semaglutide 0.25 units subcut USEASDIRECTD 03/20/24 03/30/24 History sertraline 50 mg tablet See Rx Instructions .Route 03/28/24 03/30/24 Rx .COMPLEX #90 tabs triamterene 37.5 See Rx Instructions .Route 03/28/24 03/30/24 Rx mg-hydrochlorothiazide 25 mg tablet .COMPLEX #90 tabs Allergies Allergy/AdvReac Type Severity Reaction Status Date / Time erythromycin base Allergy Intermediate Hives Verified 03/30/24 06:46 levofloxacin Allergy Intermediate Hives Verified 03/30/24 06:46 Penicillins Allergy Intermediate Hives Verified 03/30/24 06:46 Vital Signs Vital Signs - 24 hr 03/30/24 06:51 Temperature 96.5 F L Pulse Rate 66 Respiratory Rate 18 Blood Pressure 141/81 H Pulse Oximetry 99 Oxygen Delivery Room Air Assessment and Plan
[2024-03-30] MEDS: SIMETHICONE ORAL SUSPENSION 20 MG/0.3 ML 30 ML BOTTLE 0.6 ML IRRIGATION (08:41)
[2024-03-30 08:51] VITALS: BP 122/68; PULSE 67; RESP 20; O2SAT 100
[2024-03-30 09:01] VITALS: BP 122/72; PULSE 65; RESP 24; O2SAT 100
[2024-03-30 09:11] VITALS: BP 131/80; PULSE 52; RESP 18; O2SAT 100
== END 2024-03-30 09:21 | disposition home or self-care (01) ==
PROVIDERS: PCP Family Medicine Adolescent Medicine; Referring Provider Internal Medicine Gastroenterology; Visit Provider Internal Medicine Gastroenterology
PROC: 0DJD8ZZ Inspection of Lower Intestinal Tract, Via Natural or Artificial Opening Endoscopic (ICD-10-PCS; CPT 45378; principal; 2024-03-30 08:00)
DX: Z12.11 Encounter for screening for malignant neoplasm of colon (principal); K64.8 Other hemorrhoids; Z86.0100 Personal history of colon polyps, unspecified; Z87.891 Personal history of nicotine dependence; E66.9 Obesity, unspecified; Z68.31 Body mass index [BMI] 31.0-31.9, adult
CPT/HCPCS: 45378; J2003; J2704; J7120

== ENCOUNTER 2024-05-22 12:12 | Outpatient (CLI) | payer BC, SELFPAY ==
--- NOTE | ~2024-05-22 | MM_ITS ---
EXAMINATION: MM screening tung BI w sherry HISTORY: Screening TECHNIQUE: Craniocaudal and mediolateral oblique 3-D tomosynthesis images were obtained and synthetic 2-D images were generated. CAD analysis was submitted and interpreted. COMPARISON: Comparison to multiple prior studies sequentially, with oldest reviewed study dated 08/2018. BREAST PARENCHYMAL COMPOSITION: Not dense: There are scattered areas of fibroglandular density. FINDINGS: There is no evidence of suspicious mass, calcification, or architectural distortion to sugg est malignancy in either breast. There has been no suspicious interval change. IMPRESSION: 1. No mammographic evidence of malignancy. 2. Recommend routine screening mammography in one year. BI-RADS Category 1: Negative Reviewed, dictated and finalized at location B. ADMIRAL
== END 2024-05-22 12:13 | disposition home or self-care (01) ==
LOC: MICIMG 12:13
PROVIDERS: PCP Family Medicine Adolescent Medicine; Visit Provider Nurse Practitioner Women's Health
DX: Z12.31 Encounter for screening mammogram for malignant neoplasm of breast (principal)
CPT/HCPCS: 77063; 77067

== ENCOUNTER 2025-03-06 00:59 | Day surgery (SDC) | payer MEDICARE, BC, SELFPAY ==
[2025-02-19 13:08] VITALS: BMI 32.0
--- OUTSIDE RECORDS SUMMARY | 2025-03-06 01:01 | XMS_ITS | Clinical Summary ---
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 Gender Identity Not on file Sexual Orientation Not on file Plan of Treatment Health Maintenance Due Date Last Done Comments Hepatitis C Virus (HCV) Screening 1965 TdaP Immunization 1964 Pap Smear 1985 Cervical Cancer Screening (CCS) 1994 HPV/Cotest 1994 Cologuard 2009 Immunochemical Fecal Occult Blood 2009 Pneumococcal Immunization (5 0+ years) (1 of 1 - PCV) 2014 Zoster Immunization (1 of 2) 2014 SARS-COV-2 Immunization ( season) 2024 05/22/2021, 09/07/2020, 08/15/2020 Colonoscopy 07/06/2024 07/06/2019 Colorectal Cancer Screening 07/06/2024 Influenza Immunization (#1) 2025 03/08/2018 Respiratory Syncytial Virus (RSV) Immunization (Adult) (1 - 1-dose 75+ series) 2039 Hepatitis B Immunization Aged Out No longer eligible based on patient's age to complete this topic Human Papillomavirus (HPV) Immunization Aged Out No longer eligible b ased on patient's age to complete this topic Meningococcal Immunization (ACWY) Aged Out No longer eligible b ased on patient's age to complete this topic Rotavirus Immunization Aged Out No lo nger eligible based on patient's age to complete this topic Procedures Procedure Name Priority Date/Time Associated Diagnosis Comments COLONOSCOPY Routine 07/06/2019 from Last 3 Months or Most Recently Relevant to Health Maintenance Results * COLONOSCOPY (07/06/2019) Ruben Hansen DO PROCEDURE/MINOR SURGICAL ORDERA BLES Final Result from Last 3 Months or Most Recently Relevant to Health Maintenance Insurance SHARED supervisor grading MEDICARE C [employer] on file Care Teams Statistical Developer Relationship Specialty Start Date End Date Louis Oseguera MD PCP - General Family Medicine 05/18/19
--- OUTSIDE RECORDS SUMMARY | 2025-03-06 01:01 | XMS_ITS | Clinical Summary ---
Author Organization [facility] Address [address] [place] [id number] Care Team Providers Care Process Development Engineer Name Role Phone Louis Oseguera MD Primary Care Provider [phone] Social History Tobacco Use Types Packs/Day Years Used Date Smoking Tobacco: Never Assessed Comments Unknown Sex and Gender Information Value Date Recorded Sex Assigned at Not on file Legal Sex Female 6:56 PM CDT Gender Identity Not on file Sexual Orientation Not on file Plan of Treatment Health Maintenance Due Date Last Done Comments Cervical Cancer Screening Pa p Smear (Age 30 to 64) Every 3 Years 1964 Colorectal Cancer Screening Colonoscopy (10 Years) 1964 Annual Physical 1967 Hepatitis C 1982 DTaP, Tdap and Td Vaccines ( 1 - Tdap) 1983 Cervical Cancer Screening Pa p with HPV Testing (Age 30 to 64) Every 5 Years 1994 Cervical Cancer Screening with HPV 1994 Mammogram Screening 2004 Pneumococcal Vaccine: 50+ Ye ars (1 of 1 - PCV) 2014 Zoster Vaccines (1 of 2) 2014 COVID-19 Vaccine ( - 2023-2 5 season) 2025 RSV Immunization or 60+ Years (1 - 1-dose 75+ series) 2039 Meningococcal B Vaccine Aged Out No l onger eligible based on patient's age to complete this topic Meningococcal Vaccine Aged Out No alexandre yessi eligible based on patient's age to complete this topic RSV Immunizations Under 20 Months Aged Out No longer eligible based on patient's age to complete this topic Care Teams Process Development Engineer Relationship Specialty Start Date End Date Louis Oseguera MD [address] [facility] [address] [place] [address] PCP - General 04/16/11
--- OUTSIDE RECORDS SUMMARY | 2025-03-06 01:01 | XMS_ITS | Clinical Summary ---
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
--- OUTSIDE RECORDS SUMMARY | 2025-03-06 01:01 | XMS_ITS | Clinical Summary ---
Author Organization [facility] Address [address] [place] [address] Phone Care Team Providers Care Body Design Checker Name Role Phone Louis Oseguera MD Primary Care Provider [phone]- [phone] Allergies Active Allergy Reactions Criticality Noted Date Comments Erythromycin Hives High 12/03/2014 Levofloxacin Hives High 12/03/2014 Penicillins Hives High 12/03/2014 Medications Biotin 10,000 mcg Capsule Take by mouth daily. Active esomeprazole magnesium (NEXIUM 24HR) 22.3 mg Capsule, Delayed Release(E.C.) Take by mouth 1 time daily as needed. Active ondansetron (ZOFRAN ODT) 4 mg Tablet, Rapid Dissolve Place 1 Tab (4 mg) under tongue every 8 hours as needed for Nausea or Nausea/Emes is. 15 Tab 0 12/20/2014 Active Active Problems Problem Noted Date Diagnosed Date Morbid obesity 12/19/2014 DVT prophylaxis 12/19/2014 GERD (gastroesophageal reflux disease) 5 Gastroesophageal reflux disease without esophagi tis Immunizations Immunization Administration Dates Next Due Influenza Seasonal Unspecified Formulation IM Family History Medical History Relation Name Comments Other Father Parkinson's Stroke Father Hypertension Mother Relation Name Status Comments Father Mother Alive Social History Tobacco Use Types Packs/Day Years Used Date Smoking Tobacco: Former Cigarettes Q uit: 12/03/1989 Alcohol Use Standard Drinks/Week Comments No 0 (1 standard drink = 0.6 oz pur e alcohol) Comments No Sex and Gender Information Value Date Recorded Sex Assigned at Not on file Legal Sex Female 1:48 PM CDT Gender Identity Not on file Sexual Orientation Not on file Last Filed Vital Signs Vital Sign Reading Time Taken Comments Blood Pressure 113/75 12/20/2014 7:10 AM CDT Pulse 61 12/20/2014 7:10 AM CDT Temperature 36.5 C (97.7 F) 12/20/2014 7:10 AM CDT Respiratory Rate 16 12/20/2014 7:10 AM CDT Oxygen Saturation 100% 12/20/2014 7:10 AM CDT Inhaled Oxygen Concentration - - Weight 105.6 kg (232 lb 12.8 oz) 12/20/2014 5:00 AM CDT Height 157.5 cm (5' 2) 12/19/2014 5:25 AM CDT Body Mass Index 42.58 12/19/2014 5:25 AM CDT Plan of Treatment Health Maintenance Due Date Last Done Comments Pre-Diabetes and Diabetes Screening 1965 DTAP/TDAP/TD VACCINES (1 - Tdap) 1983 HPV/Cotest (21-29) 1985 CERVICAL CANCER SCREENING 1994 HPV/Cotest (30-65) 1994 PAP SMEAR 1994 BREAST CANCER SCREENING 2004 COLORECTAL SCREENING 2009 Colorectal Cancer Screening 2009 FIT-DNA Q 3 years 2009 FIT/FOBT Q 1 year 2009 Flex Sig/CT Colonography Q 5 years 2009 ZOSTER VACCINE (1 of 2) 2014 RSV VACCINE (60+ or ) (1 - Risk 60-74 years 1-dose series) 2024 INFLUENZA VACCINE (#1) 2025 04/04/2014 HEPATITIS B VACCINES Aged Out No long er eligible based on patient's age to complete this topic Medical Devices Implanted Type Area Force Adjustment Supervisor Device Identifier Shelf Expiration Date Model / Serial / Lot [employer] 60 [id number] - [id number] Implanted:Qty: 4 on 12/19/2014 by Juan Carlos Rodriguez MD at [facility] N/A: [employer] 08/11/2017 [id number] / / [id number] Insurance [facility] [id number] Advance Directives For more information, please contact: [phone] * Full Code (Latest Code Status on File) Date Activated Date Inactivated Comments 12/19/2014 5:31 AM 12/20/2014 6:15 PM * Full Code Date Activated Date Inactivated Comments 12/07/2014 7:27 AM 12/07/2014 11:40 AM * Full Code Date Activated Date Inactivated Comments 12/07/2014 5:52 AM 12/07/2014 7:27 AM Care Teams Body Design Checker Relationship Specialty Start Date End Date Louis Oseguera MD PCP - General Family Practice 12/03/14
[2025-03-06 10:28] VITALS: BP 99/66; PULSE 78; RESP 19; TEMP 36.2; O2SAT 100
[2025-03-06] MEDS: LACTATED RINGERS 1,000 ML 150 ML IV CONT (10:41)
--- NOTE | 2025-03-06 10:50 | WPDANESEPPF ---
Anes - Initial Pre Proc Eval Procedure: Operation Date: 03/06/25 11:30 Proposed Procedures p Esophagogastroduodenoscopy EGD - Shay Merino MD Date/Time: 03/06/25 10:50 Surgeon: Shay Merino MD Pre Op Diagnosis: Epigastric pain Patient Data Age: 59 Gender: F Height: 1.57 m Weight: 80.8 kg Last Vital Signs Temp 97.2 F L 03/06/25 10:28 Pulse 78 03/06/25 10:28 Resp 19 03/06/25 10:28 BP 99/66 L 03/06/25 10:28 Pulse Ox 100 03/06/25 10:28 O2 Del Method Room Air 03/06/25 10:28 Allergies Allergy/AdvReac Type Severity Reaction Status Date / Time erythromycin base Allergy Intermediate Hives Verified 03/06/25 10:26 levofloxacin Allergy Intermediate Hives Verified 03/06/25 10:26 Penicillins Allergy Intermediate Hives Verified 03/06/25 10:26 Home Medications ?Medication ?Instructions ?Recorded ?Confirmed ?Type cholecalciferol (vitamin D3) 50 2,000 unit PO DAILY 06/29/19 03/06/25 History mcg (2,000 unit) tablet (Vitamin D3) hyoscyamine sulfate 0.125 mg 0.125 mg PO QID PRN dyspepsia #90 11/20/21 03/06/25 Rx tablet (Levsin) tabs ondansetron HCl 4 mg tablet 4 mg PO Q8H PRN nausea and 11/20/21 02/19/25 Rx vomiting #90 tabs biotin 1,000 mcg chewable tablet 1,000 mcg PO DAILY 03/20/24 03/06/25 History potassium chloride 20 mEq 20 meq PO 2XW #30 tabs 07/03/24 03/06/25 Rx tablet,extended release(part/cryst) rosuvastatin 10 mg tablet See Rx Instructions .Route 01/01/25 03/06/25 Rx .COMPLEX #90 tabs sertraline 50 mg tablet See Rx Instructions .Route 01/01/25 03/06/25 Rx .COMPLEX #90 tabs triamterene 37.5 See Rx Instructions .Route 01/01/25 03/06/25 Rx mg-hydrochlorothiazide 25 mg tablet .COMPLEX #90 tabs estradiol 0.025 mg/24 hr 1 patch transdermal 2XW #8 ea 01/10/25 03/06/25 Rx semiweekly transdermal patch (Chelita) progesterone micronized 100 mg 100 mg PO QAM #30 caps 01/10/25 03/06/25 Rx capsule tirzepatide (weight loss) 5 mg/0.5 5 mg (0.5 mL) subcut WEEKLY #2 mL 03/01/25 03/06/25 Rx mL subcutaneous pen injector (Zepbound) Patient hx anesthesia problems: none Family hx anesthesia problems: none Results Review: All pre-operative results and documents have been reviewed as part of the pre-operative evaluation. [facility] Past Medical History Medical History BMI 33.0-33.9,adult Nausea Adenomatous colon polyp Sphincter of Oddi dysfunction Hx of adenomatous colonic polyps Obesity Endometriosis Meniere's syndrome IBS (irritable bowel syndrome) Surgical History Surgical History H/O gastric sleeve History of carpal tunnel surgery Bilateral Hx of repair of left rotator cuff Hx of cholecystectomy History of endometrial ablation Hx of tubal ligation Hx of tonsillectomy Hx of colonoscopy History of partial gastrectomy Family History Family History Sibling Diabetes mellitus Family history of chronic obstructive pulmonary disease Mother Hypertension Pulmonary fibrosis Father Cerebrovascular accident Family history of dementia Hypertension Parkinsons disease Other Colon polyp Social History Social History Years smoked: 5 Smoking status: Former smoker Second hand tobacco smoke exposure: No Additional smoking assessment comments: 1ppw Alcohol intake: current Substance use: never Substance use type: does not use Do You Feel Safe in your Home?: Yes Lack of Transportation: No Lack of Food: Never True Current Housing: I Have Housing Concerned About Future Housing: No Difficulty Paying Gas/Electric Bills: No Difficulty Paying for Meds: No Currently Unemployed: No Education: High School Diploma/GED Difficulty w/ Childcare or Family Care: No Living arrangements: with family Occupation/Education: other 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 Gender identity (if verbalized by the patient): Female Sexual Orientation (if Verbalized by the Patient): Straight or Heterosexual Spiritual care concerns: No Agree to blood products: Yes Anes - Eval Final PreProcedure Day of Procedure 03/06/25 10:50 Patient weight: obese Lungs: normal air movement Airway: Mallampati scale class II Neurological: alert and oriented Last oral intake: >/= 8 hours ASA classification: II Emergent: no Anesthetic plan: proceed Anesthesia type and monitoring: general GIVS and standard monitoring Results Review: All pre-operative results and documents have been reviewed as part of the pre-operative evaluation. Hyperlipidemia, off GLP 1 since 02.19.25. Active w walking 1-2 fos, no cp or sob. Informed Consent: The patient's anesthetic plan and its attendant risks and benefits were discussed with the patient/family/POA. Questions were solicited and answers provided to the satisfaction of the patient/family/POA.
--- NOTE | 2025-03-06 11:07 | PM.HPGS ---
History of Present Illness History of Present Illness Consent: Risks, benefits, and alternatives have been discussed and questions answered. Patient agrees to proceed with procedure. Chief complaint: Epigastric pain Narrative: Kisha Romero is a 59 year old female here for egd, epigastric pain Review of Systems Review of Systems: All systems reviewed & are unremarkable except as noted in HPI and below PMFSH Past Medical History Medical History BMI 33.0-33.9,adult Nausea Adenomatous colon polyp Sphincter of Oddi dysfunction Hx of adenomatous colonic polyps Obesity Endometriosis Meniere's syndrome IBS (irritable bowel syndrome) Surgical History Surgical History H/O gastric sleeve History of carpal tunnel surgery Bilateral Hx of repair of left rotator cuff Hx of cholecystectomy History of endometrial ablation Hx of tubal ligation Hx of tonsillectomy Hx of colonoscopy History of partial gastrectomy Family History Family History Sibling Diabetes mellitus Family history of chronic obstructive pulmonary disease Mother Hypertension Pulmonary fibrosis Father Cerebrovascular accident Family history of dementia Hypertension Parkinsons disease Other Colon polyp Social History Social History Years smoked: 5 Smoking status: Former smoker Second hand tobacco smoke exposure: No Additional smoking assessment comments: 1ppw Alcohol intake: current Substance use: never Substance use type: does not use Do You Feel Safe in your Home?: Yes Lack of Transportation: No Lack of Food: Never True Current Housing: I Have Housing Concerned About Future Housing: No Difficulty Paying Gas/Electric Bills: No Difficulty Paying for Meds: No Currently Unemployed: No Education: High School Diploma/GED Difficulty w/ Childcare or Family Care: No Living arrangements: with family Occupation/Education: other 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 Gender identity (if verbalized by the patient): Female Sexual Orientation (if Verbalized by the Patient): Straight or Heterosexual Spiritual care concerns: No Agree to blood products: Yes Meds Home Medications and Allergies Home Medications ?Medication ?Instructions ?Recorded ?Confirmed ?Type cholecalciferol (vitamin D3) 50 2,000 unit PO DAILY 06/29/19 03/06/25 History mcg (2,000 unit) tablet (Vitamin D3) hyoscyamine sulfate 0.125 mg 0.125 mg PO QID PRN dyspepsia #90 11/20/21 03/06/25 Rx tablet (Levsin) tabs ondansetron HCl 4 mg tablet 4 mg PO Q8H PRN nausea and 11/20/21 02/19/25 Rx vomiting #90 tabs biotin 1,000 mcg chewable tablet 1,000 mcg PO DAILY 03/20/24 03/06/25 History potassium chloride 20 mEq 20 meq PO 2XW #30 tabs 07/03/24 03/06/25 Rx tablet,extended release(part/cryst) rosuvastatin 10 mg tablet See Rx Instructions .Route 01/01/25 03/06/25 Rx .COMPLEX #90 tabs sertraline 50 mg tablet See Rx Instructions .Route 01/01/25 03/06/25 Rx .COMPLEX #90 tabs triamterene 37.5 See Rx Instructions .Route 01/01/25 03/06/25 Rx mg-hydrochlorothiazide 25 mg tablet .COMPLEX #90 tabs estradiol 0.025 mg/24 hr 1 patch transdermal 2XW #8 ea 01/10/25 03/06/25 Rx semiweekly transdermal patch (Chelita) progesterone micronized 100 mg 100 mg PO QAM #30 caps 01/10/25 03/06/25 Rx capsule tirzepatide (weight loss) 5 mg/0.5 5 mg (0.5 mL) subcut WEEKLY #2 mL 03/01/25 03/06/25 Rx mL subcutaneous pen injector (Zepbound) Allergies Allergy/AdvReac Type Severity Reaction Status Date / Time erythromycin base Allergy Intermediate Hives Verified 03/06/25 10:26 levofloxacin Allergy Intermediate Hives Verified 03/06/25 10:26 Penicillins Allergy Intermediate Hives Verified 03/06/25 10:26 Vital Signs Vital Signs - 24 hr 03/06/25 10:28 Temperature 97.2 F L Pulse Rate 78 Respiratory Rate 19 Blood Pressure 99/66 L Pulse Oximetry 100 Oxygen Delivery Room Air Exam Const: General: comfortable and no acute distress HENMT: Face/Nose/Sinus: Normal nares present Eyes: General: appearance normal, both eyes and all related structures Neck: Neck: no JVD Resp: Auscultation: clear to auscultation bilaterally Cardio: Rate: regular rate Rhythm: regular rhythm GI: Inspection: non-distended GI Palp: Yes Soft to palpation Skin: General skin exam: normal color Neuro: Speech: normal speech Extrem: General: normal to inspection Psych: Mental Status: mental status grossly normal Assessment and Plan Assessment and plan (1) Abdominal pain, epigastric: Code(s): R10.13 - Epigastric pain Status: Inactive Assessment and Plan: egd with bx
--- NOTE | 2025-03-06 11:14 | S_PTH ---
PATIENT: Kisha Romero LOC: [facility]#:[id number] AGE/SX: 59/F ROOM: RE03/06/[address]: Shay Merino MD : 1965 BED: DIS: 03/06/2025 SPEC #: [id number] RECD: 03/06/25 12:03 STATUS: JOSE MIGUEL RE #: [id number] BEBETO: 03/06/25 11:[address]: Shay Merino DEPT: [facility] Surgical RECD BY: Tereso Vega ENTERED: 03/06/25 12:03 SP TYPE: Surgical OTHR DR: Cari Levy, ALVIN Tissues: A - Gastric Biopsy B - Small Bowel Bx Procedures: Hematoxylin and Eosin Stain Gross and Microscopic Level 4
[2025-03-06 11:21] VITALS: BP 116/67; PULSE 54; RESP 17; O2SAT 100
[2025-03-06 11:31] VITALS: BP 124/66; PULSE 46; RESP 14; O2SAT 100
[2025-03-06 11:41] VITALS: BP 119/69; PULSE 47; RESP 15; O2SAT 100
[2025-03-06 12:22] LABS: HPYLORIRESULT Negative (Negative)
== END 2025-03-06 11:49 | disposition home or self-care (01) ==
PROVIDERS: PCP Nurse Practitioner Family; Referring Provider Nurse Practitioner Family; Visit Provider Internal Medicine Gastroenterology
PROC: 0DJ08ZZ Inspection of Upper Intestinal Tract, Via Natural or Artificial Opening Endoscopic (ICD-10-PCS; CPT 43239; principal; 2025-03-06 11:30)
DX: K31.89 Other diseases of stomach and duodenum (principal); K29.70 Gastritis, unspecified, without bleeding; E78.5 Hyperlipidemia, unspecified; K83.4 Spasm of sphincter of Oddi; N80.9 Endometriosis, unspecified; H81.09 Meniere's disease, unspecified ear; K58.9 Irritable bowel syndrome, unspecified; Z98.890 Other specified postprocedural states; Z98.84 Bariatric surgery status; Z90.49 Acquired absence of other specified parts of digestive tract; Z98.891 History of uterine scar from previous surgery; Z98.51 Tubal ligation status; Z90.3 Acquired absence of stomach [part of]; Z86.0100 Personal history of colon polyps, unspecified; Z87.891 Personal history of nicotine dependence; Z83.719 Family history of colon polyps, unspecified
CPT/HCPCS: 43239; 87081; 88305; J2003; J2704; J7120

== ENCOUNTER 2025-05-28 10:31 | Outpatient (CLI) | payer MEDICARE, SELFPAY ==
--- NOTE | ~2025-05-28 | MM_ITS ---
EXAMINATION: MM screening tung BI w sherry HISTORY: Screening TECHNIQUE: Craniocaudal and mediolateral oblique 3-D tomosynthesis images were obtained and synthetic 2-D images were generated. CAD analysis was submitted and interpreted. COMPARISON: Comparison to multiple prior studies sequentially, with oldest reviewed study dated , 04/01/2020 BREAST PARENCHYMAL COMPOSITION: Not Dense: There are scattered areas of fibroglandular density. FINDINGS: There is no evidence of suspicious mass, calcification, or architectural distortion to suggest malignancy in either breast. IMPRESSION: 1. No mammographic evidence of malignancy. 2. Recommend routine screening mammography in one year. BI-RADS Category 1: Negative Reviewed, dictated and finalized at location A. ICAL BUSINESS ANALYST
== END 2025-05-28 10:32 | disposition home or self-care (01) ==
LOC: MICIMG 10:32
PROVIDERS: PCP Family Medicine; Visit Provider Obstetrics & Gynecology Gynecology
DX: Z12.31 Encounter for screening mammogram for malignant neoplasm of breast (principal)
CPT/HCPCS: 77063; 77067